=== PATIENT | female | born 1990 | race Caucasian/White ===

== ENCOUNTER 2019-07-24 18:53 | Observation (INO) | payer MEDICAID ==
[2019-07-24] MEDS ORDERED: Ondansetron 4 MG/2 ML SDV IVPUSH PRN (19:19)
[2019-07-24] MEDS ORDERED: Tranexamic Acid 1,000 MG in Sodium Chloride 0.9% 100 ML IV PRN (19:19)
[2019-07-24] MEDS ORDERED: Water For Irrigation,Sterile 1,000 ML Container IRR PRN (19:19)
[2019-07-24] MEDS ORDERED: Carboprost Tromethamine 250 MCG/1 ML Amp IM PRN (19:19)
[2019-07-24] MEDS ORDERED: Sodium Chloride 0.9% 10 ML SDV IV PRN (19:19)
[2019-07-24] MEDS ORDERED: Lidocaine 1% 50 ML MDV INJECT PRN (19:19)
[2019-07-24] MEDS ORDERED: Misoprostol 200 MCG Tab PO PRN (19:19)
[2019-07-24] MEDS ORDERED: Sodium Chloride 0.9% 10 ML Syringe FLUSH PRN (19:19)
[2019-07-24] MEDS ORDERED: Butorphanol 1 MG/ML SDV IVPUSH PRN (19:19)
[2019-07-24] MEDS ORDERED: Sodium Chloride 0.9% 2.5 ML Syringe FLUSH PRN (19:19)
[2019-07-24] MEDS ORDERED: Methylergonovine 0.2 MG/1 ML Amp IM PRN (19:19)
[2019-07-24] MEDS ORDERED: Terbutaline 1 MG/ML SDV SUBCUT PRN (19:23)
[2019-07-24] MEDS ORDERED: Oxytocin/0.9 % Sodium Chloride 30 UNIT/500 ML BAG IV SCH ×2 (19:30)
[2019-07-24] MEDS: Lactated Ringers 1,000 ML IV SCH (19:41)
[2019-07-24] MEDS ORDERED: Ampicillin 2 GM in Sodium Chloride 0.9% 100 ML IV ONE (20:00)
[2019-07-24] MEDS: Misoprostol 25 MCG (1/4 of 100 MCG) Tab VAG PRN (20:37)
[2019-07-25] MEDS ORDERED: Citric Acid/Sodium Citrate Solution 30 ML Cup PO ONE (00:44)
[2019-07-25] MEDS: Misoprostol 25 MCG (1/4 of 100 MCG) Tab VAG PRN (00:59)
[2019-07-25] MEDS: Ampicillin 1 GM in Sodium Chloride 0.9% 50 ML IV SCH ×4 (03:58→07:52)
[2019-07-25] MEDS: Lactated Ringers 1,000 ML IV SCH ×2 (04:34→09:10)
[2019-07-25] MEDS ORDERED: Docusate Sodium 100 MG Cap PO ONE (05:25)
--- NOTE | 2019-07-25 09:29 | PCM.PREANE ---
Preanesthetic Assessment - Anesthesia/Transfusion/Family Hx Anesthesia History: No Prior Anesthesia Family History of Anesthesia Reaction: No Transfusion History: No Prior Transfusion(s) - Review of Systems General: No Symptoms Pulmonary: No Symptoms Cardiovascular: No Symptoms Gastrointestinal: No Symptoms Neurological: No Symptoms Other: Reports: None - Physical Assessment NPO Status Date: 07/25/19 NPO Status Time: 09:00 Height: 5 ft 2.5 in Weight: 87.543 kg ASA Class: 2 Mental Status: Alert & Oriented x3 Airway Class: Mallampati = 3 Dentition: Reports: Normal Dentition Thyro-Mental Finger Breadths: 2 ROM/Head Extension: Full Lungs: Clear to Auscultation, Normal Respiratory Effort Cardiovascular: Regular Rate, Regular Rhythm - Lab Values: Laboratory Last Values WBC 12.84 K/uL (4.0-11.0) H 07/24/19 19:39 RBC 4.27 M/uL (4.30-5.90) L 07/24/19 19:39 Hgb 13.5 g/dL (12.0-16.0) 07/24/19 19:39 Hct 40.3 % (36.0-46.0) 07/24/19 19:39 MCV 94.4 fL (80.0-98.0) 07/24/19 19:39 MCH 31.6 pg (27.0-32.0) 07/24/19 19:39 MCHC 33.5 g/dL (31.0-37.0) 07/24/19 19:39 RDW Std Deviation 46.6 fl (28.0-62.0) 07/24/19 19:39 RDW Coeff of Kateryna 14 % (11.0-15.0) 07/24/19 19:39 Plt Count 273 K/uL (150-400) 07/24/19 19:39 MPV 10.60 fL (7.40-12.00) 07/24/19 19:39 Nucleated RBC % 0.0 /100WBC 07/24/19 19:39 Nucleated RBCs # 0 K/uL 07/24/19 19:39 Blood Type O POSITIVE 07/24/19 19:39 Antibody Screen NEGATIVE 07/24/19 19:39 - Allergies Allergies/Adverse Reactions: Allergies Allergy/AdvReac Type Severity Reaction Status Date / Time No Known Allergies Allergy Verified 07/24/19 19:08 - Acknowledgements Anesthesia Type Planned: Epidural Pt an Appropriate Candidate for the Planned Anesthesia: Yes Alternatives and Risks of Anesthesia Discussed w Pt/Guardian: Yes Pt/Guardian Understands and Agrees with Anesthesia Plan: Yes PreAnesthesia Questionnaire Respiratory History: Reports: Asthma 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: - Infectious Disease History Infectious Disease History: Reports: Chicken Pox - Past Surgical History Respiratory Surgical History: Reports: None Dermatological Surgical History: Reports: None - SUBSTANCE USE Smoking Status *Q: Never Smoker Recreational Drug Use History: No - HOME MEDS Home Medications: Home Meds Albuterol [Ventolin HFA] 1 puff MISC PRN 07/13/19 [History] Fluticasone/Salmeterol [Advair 250-50 Diskus] 1 puff MISC PRN 07/13/19 [History] Magnesium Hydroxide [Milk of Magnesia] 30 ml PO PRN 07/13/19 [History] PNV95/Ferrous Fumarate/FA [ Vitamins Tablet] 1 tab PO DAILY 07/13/19 [ History] - CURRENT (IN HOUSE) MEDS Current Meds: Current Medications Butorphanol Tartrate (Stadol) 1 mg IVPUSH Q1H PRN PRN Reason: Pain Last Admin: 07/25/19 08:20 Dose: 1 mg Carboprost Tromethamine (Hemabate Ds) 250 mcg IM ASDIRECTED PRN PRN Reason: Post Hemorrhage Ampicillin Sodium 1 gm/ Sodium (Chloride) 50 mls @ 100 mls/hr IV Q4H PRAVIN Last Admin: 07/25/19 07:52 Dose: 100 mls/hr Lactated Ringer's (Ringers, Lactated) 1,000 mls @ 150 mls/hr IV ASDIRECTED PRAVIN Last Admin: 07/25/19 09:10 Dose: 999 mls/hr Oxytocin/Sodium Chloride (Oxytocin 30 Unit/500 Ml-Ns) 30 unit in 500 mls @ 999 mls/hr IV TITRATE PRAVIN Tranexamic Acid 1,000 mg/ (Sodium Chloride) 110 mls @ 660 mls/hr IV ONETIME PRN PRN Reason: Bleeding Oxytocin/Sodium Chloride (Oxytocin 30 Unit/500 Ml-Ns) 30 unit in 500 mls @ 2 mls/hr IV TITRATE PRAVIN; Protocol Last Titration: 07/25/19 09:02 Dose: 6 munits/min, 6 mls/hr Lidocaine HCl (Xylocaine 1%) 50 ml INJECT ONETIME PRN PRN Reason: Laceration repair Methylergonovine Maleate (Methergine) 0.2 mg IM ASDIRECTED PRN PRN Reason: Post Hemorrhage Misoprostol (Cytotec) 200 mcg PO ONETIME PRN PRN Reason: Post Hemorrhage Misoprostol (Cytotec) 25 mcg VAG Q4H PRN PRN Reason: Cervical Ripening Last Admin: 07/25/19 00:59 Dose: 25 mcg Ondansetron HCl (Zofran) 4 mg IVPUSH Q6H PRN PRN Reason: Nausea/Vomiting Sodium Chloride (Saline Flush) 10 ml FLUSH ASDIRECTED PRN PRN Reason: Keep Vein Open Sodium Chloride (Saline Flush) 2.5 ml FLUSH ASDIRECTED PRN PRN Reason: Keep Vein Open Sodium Chloride (Normal Saline) 10 ml IV ASDIRECTED PRN PRN Reason: IV Use Sterile Water (Sterile Water For Irrigation) 1,000 ml IRR ASDIRECTED PRN PRN Reason: delivery Terbutaline Sulfate (Brethine) 0.25 mg SUBCUT ASDIRECTED PRN PRN Reason: Tacysystole Discontinued Medications Citric Acid/Sodium Citrate (Bicitra Solution) 30 ml PO ONETIME ONE Stop: 07/25/19 00:45 Last Admin: 07/25/19 01:01 Dose: 30 ml Docusate Sodium (Colace) 100 mg PO ONETIME ONE Stop: 07/25/19 05:26 Last Admin: 07/25/19 05:32 Dose: 100 mg Ampicillin Sodium 2 gm/ Sodium (Chloride) 100 mls @ 200 mls/hr IV ONETIME ONE Stop: 07/24/19 20:29 Last Admin: 07/24/19 19:49 Dose: 200 mls/hr Fentanyl/Bupivacaine HCl ([id number]-Avrvw-Ex 2 Mcg/Ml-0.125%) Confirm Administered Dose 100 mls @ as directed .ROUTE .STK-MED ONE Stop: 07/25/19 09:06
[2019-07-25] MEDS ORDERED: Lanolin 100% Cream 7 GM Tube TOP PRN (10:23)
[2019-07-25] MEDS ORDERED: Benzocaine/Menthol 20%-0.5% Spray 78 GM Cannister TOP PRN (10:23)
[2019-07-25] MEDS ORDERED: Witch Hazel Medicated Pads 40/Jar TOP PRN (10:23)
[2019-07-25] MEDS ORDERED: oxyCODONE 5 MG Tab PO PRN (10:23)
[2019-07-25] MEDS ORDERED: Ibuprofen 400 MG Tab PO PRN (10:23)
[2019-07-25] MEDS ORDERED: Docusate Sodium 100 MG Cap PO PRN (10:23)
[2019-07-25] MEDS ORDERED: Acetaminophen 500 MG Tab PO PRN (10:23)
[2019-07-25] MEDS ORDERED: Bisacodyl 10 MG Supp RECTAL PRN (10:23)
[2019-07-25] MEDS: Ibuprofen 800 MG Tab PO PRN ×2 (13:16→20:15)
--- NOTE | 2019-07-25 16:04 | OR ---
SURGEON: Aliza Henriquez M.D. DATE OF PROCEDURE: 07/25/2019 PREOPERATIVE DIAGNOSES: 1. 39/1 week intrauterine . 2. Elective induction of labor. 3. Group B beta strep positive. POSTOPERATIVE DIAGNOSES: 1. 39/1 week intrauterine . 2. Elective induction of labor. 3. Group B beta strep positive. PROCEDURE: Spontaneous vaginal delivery, intact perineum. CONSULTING DATABASE ADMINISTRATOR: LINDA Shepherd. ANESTHESIA: Epidural. ESTIMATED BLOOD LOSS: 300 mL. COMPLICATIONS: None known. FINDINGS: Viable female. scores of 9 at one minute and 9 at five minutes. Weight is pending. Spontaneous delivery, intact placenta, 3-vessel cord. DISPOSITION: to nursery and mom in LDRP. PROCEDURE DETAILS: Issac is a 28-year-old, G5, P4 39/1 week gestational age, who was admitted on the evening of 07/24/2019, for Cytotec ripening due to elective induction of labor request and unfavorable cervix. The patient responded nicely to the Cytotec ripening. The following morning was found to be 4 cm, 80% effaced, -2 station. She is group B beta strep positive, has received 4 doses of ampicillin prophylaxis. Therefore, underwent amniotomy shortly before 09:00 a.m., clear fluid was returned. The patient became increasingly uncomfortable, underwent regional anesthesia in the form of epidural and began to progress much more rapidly thereafter. With the next hour, she was found to be complete, 100% effaced, at a +2 station. I was called for delivery. Upon my arrival, the patient was placed in modified dorsal lithotomy position, was prepped and draped in the usual aseptic manner. Pitocin was at 6 milliunits per minute. heart tones 140s with variability. With the next 2 contractions, was able to push and deliver the infant's head atraumatically spontaneously, followed by anterior shoulder, posterior shoulder and main body without difficulty. Nuchal cord x1 reduced manually. The 's oropharynx and nares were bulb suctioned. was handed off to her mother with attending nurse staff at the side. After delay, cord was clamped x2 and cut. Cord arterial, cord venous, cord blood sampling were obtained. Light pressure was applied. The placenta was delivered spontaneously intact. Vigorous fundal uterine massage was then applied while 30 units of Pitocin was delivered in 500 mL IV fluid. On inspection of cervix, vaginal sidewall, and the perineum, these were found to be intact. Uterus remained firm. Hemostasis evident. Sponge and instrument counts were correct. The patient remained in LDRP and infant in nursery. ADILIA WILHELM /[id number] MTDD
[2019-07-25] MEDS: Acetaminophen 500 MG Tab PO PRN (17:43)
[2019-07-26] MEDS: Ibuprofen 800 MG Tab PO PRN ×2 (03:54→11:30)
--- NOTE | 2019-07-26 05:07 | PCM.PNPP ---
- General Info Date of Service: 07/26/19 Functional Status: Reports: Pain Controlled, Tolerating Diet, Ambulating, Urinating - Review of Systems General: Reports: No Symptoms HEENT: Reports: No Symptoms Pulmonary: Reports: No Symptoms Cardiovascular: Reports: No Symptoms Gastrointestinal: Reports: No Symptoms Genitourinary: Reports: No Symptoms Musculoskeletal: Reports: No Symptoms Skin: Reports: No Symptoms Neurological: Reports: No Symptoms Psychiatric: Reports: No Symptoms - Patient Data Vital Signs - Most Recent: Last Vital Signs Temp 36.5 C 07/26/19 04:18 Pulse 76 07/26/19 04:18 Resp 15 07/26/19 04:18 BP 125/78 07/26/19 04:18 Pulse Ox 94 L 07/26/19 04:18 Weight - Most Recent: 87.543 kg Med Orders - Current: Current Medications Acetaminophen (Tylenol Extra Strength) 500 mg PO Q4H PRN PRN Reason: Pain Acetaminophen (Tylenol Extra Strength) 1,000 mg PO Q4H PRN PRN Reason: Pain Last Admin: 07/25/19 17:43 Dose: 1,000 mg Benzocaine/Menthol (Dermoplast Pain Relief 20%-0.5% [place]) 78 gm TOP ASDIRECTED PRN PRN Reason: Perineal Comfort Measure Bisacodyl (Dulcolax) 10 mg RECTAL ONETIME PRN PRN Reason: Constipation Carboprost Tromethamine (Hemabate Ds) 250 mcg IM ASDIRECTED PRN PRN Reason: Post Hemorrhage Docusate Sodium (Colace) 100 mg PO BID PRN PRN Reason: Constipation Emollient Ointment (Lansinoh Hpa) 0 gm TOP ASDIRECTED PRN PRN Reason: Sore Nipples Lactated Ringer's (Ringers, Lactated) 1,000 mls @ 150 mls/hr IV ASDIRECTED PRAVIN Last Infusion: 07/25/19 09:30 Dose: 150 mls/hr Oxytocin/Sodium Chloride (Oxytocin 30 Unit/500 Ml-Ns) 30 unit in 500 mls @ 999 mls/hr IV TITRATE PRAVIN Tranexamic Acid 1,000 mg/ (Sodium Chloride) 110 mls @ 660 mls/hr IV ONETIME PRN PRN Reason: Bleeding Oxytocin/Sodium Chloride (Oxytocin 30 Unit/500 Ml-Ns) 30 unit in 500 mls @ 2 mls/hr IV TITRATE PRAVIN; Protocol Last Titration: 07/25/19 10:10 Dose: 500 munits/min, 500 mls/hr Ibuprofen (Motrin) 400 mg PO Q4H PRN PRN Reason: Pain Ibuprofen (Motrin) 800 mg PO Q6H PRN PRN Reason: Pain Last Admin: 07/26/19 03:54 Dose: 800 mg Lidocaine HCl (Xylocaine 1%) 50 ml INJECT ONETIME PRN PRN Reason: Laceration repair Methylergonovine Maleate (Methergine) 0.2 mg IM ASDIRECTED PRN PRN Reason: Post Hemorrhage Ondansetron HCl (Zofran) 4 mg IVPUSH Q6H PRN PRN Reason: Nausea/Vomiting Oxycodone HCl (Oxycodone) 5 mg PO Q2H PRN PRN Reason: Pain Last Admin: 07/25/19 17:43 Dose: 5 mg Sodium Chloride (Saline Flush) 10 ml FLUSH ASDIRECTED PRN PRN Reason: Keep Vein Open Sodium Chloride (Saline Flush) 2.5 ml FLUSH ASDIRECTED PRN PRN Reason: Keep Vein Open Sodium Chloride (Normal Saline) 10 ml IV ASDIRECTED PRN PRN Reason: IV Use Sterile Water (Sterile Water For Irrigation) 1,000 ml IRR ASDIRECTED PRN PRN Reason: delivery Last Admin: 07/25/19 10:29 Dose: 1,000 ml Witch Perri (Tucks) 1 pad TOP ASDIRECTED PRN PRN Reason: comfort care Discontinued Medications Butorphanol Tartrate (Stadol) 1 mg IVPUSH Q1H PRN PRN Reason: Pain Last Admin: 07/25/19 08:20 Dose: 1 mg Citric Acid/Sodium Citrate (Bicitra Solution) 30 ml PO ONETIME ONE Stop: 07/25/19 00:45 Last Admin: 07/25/19 01:01 Dose: 30 ml Docusate Sodium (Colace) 100 mg PO ONETIME ONE Stop: 07/25/19 05:26 Last Admin: 07/25/19 05:32 Dose: 100 mg Ampicillin Sodium 2 gm/ Sodium (Chloride) 100 mls @ 200 mls/hr IV ONETIME ONE Stop: 07/24/19 20:29 Last Admin: 07/24/19 19:49 Dose: 200 mls/hr Ampicillin Sodium 1 gm/ Sodium (Chloride) 50 mls @ 100 mls/hr IV Q4H PRAVIN Last Admin: 07/25/19 07:52 Dose: 100 mls/hr Fentanyl/Bupivacaine HCl (Gzadzpdc-Ajxdp-Yy 2 Mcg/Ml-0.125%) Confirm Administered Dose 100 mls @ as directed .ROUTE .STK-MED ONE Stop: 07/25/19 09:06 Last Admin: 07/25/19 18:30 Dose: Not Given Misoprostol (Cytotec) 200 mcg PO ONETIME PRN PRN Reason: Post Hemorrhage Misoprostol (Cytotec) 25 mcg VAG Q4H PRN PRN Reason: Cervical Ripening Last Admin: 07/25/19 00:59 Dose: 25 mcg Terbutaline Sulfate (Brethine) 0.25 mg SUBCUT ASDIRECTED PRN PRN Reason: Tacysystole - Interaction Disposition, : [place] at Bedside Interaction: Holding Infant Infant Feeding: Attempted ; Nursed Fair/Poor Support Person: - Recovery Exam Fundal Tone: Firm Fundal Level: At Umbilicus Fundal Placement: Midline Lochia Amount: None Lochia Color: Rubra/Red Bladder Status: Voiding Urinary Elimination: Voided - Exam General: Alert, Oriented, Cooperative, No Acute Distress Neck: Supple Lungs: Clear to Auscultation, Normal Respiratory Effort Cardiovascular: Regular Rate, Regular Rhythm GI/Abdominal Exam: Soft, Non-Tender Extremities: Non-Tender Skin: Warm, Dry, Intact Wound/Incisions: Healing Well Neurological: No New Focal Deficit Psy/Mental Status: Alert, Normal Affect, Normal Mood - Problem List & Annotations (1) Vaginal delivery SNOMED Code(s): 619320554 Code(s): O80 - ENCOUNTER FOR FULL-TERM UNCOMPLICATED DELIVERY Status: Acute Current Visit: Yes - Problem List Review Problem List Initiated/Reviewed/Updated: Yes - My Orders Last 24 Hours: My Active Orders 07/26/19 05:05 Ready for Discharge [RC] PER UNIT ROUTINE - Assessment Assessment:: 28yo s/p spontaneous vaginal delivery - Plan Plan:: 1. care -Encourage ambulation 2. Dispo -Discharge home today
--- NOTE | 2019-07-26 07:00 | PCM48HPAN ---
Post Anesthesia Note - EVALUATION WITHIN 48HRS OF ANESTHETIC Vital Signs in Normal Range: Yes Patient Participated in Evaluation: Yes Respiratory Function Stable: Yes Airway Patent: Yes Cardiovascular Function Stable: Yes Hydration Status Stable: Yes Pain Control Satisfactory: Yes Nausea and Vomiting Control Satisfactory: Yes Mental Status Recovered: Yes Vital Signs: Last Vital Signs Temp 97.7 F 07/26/19 04:18 Pulse 76 07/26/19 04:18 Resp 15 07/26/19 04:18 BP 125/78 07/26/19 04:18 Pulse Ox 94 L 07/26/19 04:18
[2019-07-26] MEDS: Acetaminophen 500 MG Tab PO PRN (09:26)
== END 2019-07-26 13:55 | disposition home or self-care (01) ==
LOC: MW.OBCHECK 18:53 → MW.OB 18:55 → MW.OBCHECK 19:19 → MW.OB 07-25 12:20
PROVIDERS: ADMIT Obstetrics & Gynecology; ATTEND Obstetrics & Gynecology
DX: O80 Encounter for full-term uncomplicated delivery (principal); O99.89 Other specified diseases and conditions complicating pregnancy, childbirth and the puerperium; J45.909 Unspecified asthma, uncomplicated; Z3A.39 39 weeks gestation of pregnancy
CPT/HCPCS: 36415; 51701; 59025; 59409; 85014; 85018; 85027; 86850; 86900; 86901; A9270; J0290; J0595; J2590; J7030; J7050; J7120

== ENCOUNTER 2020-09-02 13:37 | Inpatient (IN) | payer MEDICAID ==
[2020-09-02] MEDS ORDERED: Sodium Chloride 0.9% 2.5 ML Syringe FLUSH PRN (14:05)
[2020-09-02] MEDS ORDERED: Carboprost Tromethamine 250 MCG/1 ML Amp IM PRN (14:05)
[2020-09-02] MEDS ORDERED: Sodium Chloride 0.9% 10 ML Syringe FLUSH PRN (14:05)
[2020-09-02] MEDS ORDERED: Misoprostol 200 MCG Tab PO PRN (14:05)
[2020-09-02] MEDS ORDERED: Sodium Chloride 0.9% 10 ML SDV IV PRN (14:05)
[2020-09-02] MEDS ORDERED: Tranexamic Acid 1,000 MG in Sodium Chloride 0.9% 100 ML IV PRN ×2 (14:05→22:45)
[2020-09-02] MEDS ORDERED: Water For Irrigation,Sterile 1,000 ML Container IRR PRN (14:05)
[2020-09-02] MEDS ORDERED: Methylergonovine 0.2 MG/1 ML Amp IM PRN (14:05)
[2020-09-02] MEDS ORDERED: Lidocaine 1% 50 ML MDV INJECT PRN (14:05)
[2020-09-02] MEDS ORDERED: Nalbuphine 10 MG/1 ML Vial IVPUSH PRN (14:05)
[2020-09-02] MEDS ORDERED: Terbutaline 1 MG/ML SDV SUBCUT PRN (14:10)
[2020-09-02] MEDS ORDERED: Oxytocin/0.9 % Sodium Chloride 30 UNIT/500 ML BAG IV SCH ×2 (14:15)
[2020-09-02] MEDS: Lactated Ringers 1,000 ML IV SCH ×4 (14:40→20:24)
--- NOTE | 2020-09-02 18:07 | PCM.PREANE ---
Preanesthetic Assessment - Anesthesia/Transfusion/Family Hx Anesthesia History: Prior Anesthesia Without Reaction (only for epidurals) Transfusion History: No Prior Transfusion(s) - Review of Systems General: No Symptoms Pulmonary: No Symptoms Cardiovascular: No Symptoms Gastrointestinal: No Symptoms Neurological: No Symptoms Other: Reports: None - Physical Assessment NPO Status Date: 09/02/20 NPO Status Time: 17:40 Height: 1.61 m Weight: 94.347 kg ASA Class: 2 Mental Status: Alert & Oriented x3 Airway Class: Mallampati = 2 Dentition: Reports: Normal Dentition Thyro-Mental Finger Breadths: 3 Mouth Opening Finger Breadths: 3 ROM/Head Extension: Full Lungs: Clear to Auscultation, Normal Respiratory Effort Cardiovascular: Regular Rate, Regular Rhythm - Lab Values: Laboratory Last Values WBC 10.50 K/uL (4.0-11.0) 09/02/20 13:30 RBC 3.95 M/uL (4.30-5.90) L 09/02/20 13:30 Hgb 12.3 g/dL (12.0-16.0) 09/02/20 13:30 Hct 37.4 % (36.0-46.0) 09/02/20 13:30 MCV 94.7 fL (80.0-98.0) 09/02/20 13:30 MCH 31.1 pg (27.0-32.0) 09/02/20 13:30 MCHC 32.9 g/dL (31.0-37.0) 09/02/20 13:30 RDW Std Deviation 46.5 fl (28.0-62.0) 09/02/20 13:30 RDW Coeff of Kateryna 13 % (11.0-15.0) 09/02/20 13:30 Plt Count 298 K/uL (150-400) 09/02/20 13:30 MPV 10.00 fL (7.40-12.00) 09/02/20 13:30 Nucleated RBC % 0.0 /100WBC 09/02/20 13:30 Nucleated RBCs # 0 K/uL 09/02/20 13:30 Blood Type O POSITIVE 09/02/20 13:30 Antibody Screen NEGATIVE 09/02/20 13:30 - Allergies Allergies/Adverse Reactions: Allergies Allergy/AdvReac Type Severity Reaction Status Date / Time No Known Allergies Allergy Verified 07/24/19 19:08 - Acknowledgements Anesthesia Type Planned: Epidural (patient understands risks and benefits, and agrees to proceed. Consent signed. ) Pt an Appropriate Candidate for the Planned Anesthesia: Yes Alternatives and Risks of Anesthesia Discussed w Pt/Guardian: Yes Pt/Guardian Understands and Agrees with Anesthesia Plan: Yes PreAnesthesia Questionnaire HEENT History: Reports: None Cardiovascular History: Reports: None Respiratory History: Reports: Asthma (last used inhaler six months ago) Gastrointestinal History: Reports: GERD Genitourinary History: Reports: None [employer] History: Reports: Musculoskeletal History: Reports: None Neurological History: Reports: None Psychiatric History: Reports: None Endocrine/Metabolic History: Reports: Obesity/BMI 30+ Hematologic History: Reports: None Immunologic History: Reports: None Oncologic (Cancer) History: Reports: None Dermatologic History: Reports: None - Infectious Disease History Infectious Disease History: Reports: Chicken Pox - Past Surgical History HEENT Surgical History: Reports: None Cardiovascular Surgical History: Reports: None Respiratory Surgical History: Reports: None GI Surgical History: Reports: None Female Surgical History: Reports: None Musculoskeletal Surgical History: Reports: None Dermatological Surgical History: Reports: None - History Comment History Comment: denies etoh - SUBSTANCE USE Tobacco Use Status *Q: Never Tobacco User Second Hand Smoke Exposure: No Recreational Drug Use History: No - HOME MEDS Home Medications: Home Meds Albuterol [Ventolin HFA] 1 puff MISC PRN 07/13/19 [History] Fluticasone Propion/Salmeterol [Advair 250-50 Diskus] 1 puff MISC PRN 07/13/19 [History] Magnesium Hydroxide [Milk of Magnesia] 30 ml PO PRN 07/13/19 [History] Pnv No.95/Ferrous Fum/Folic AC [ Vitamins Tablet] 1 tab PO DAILY 07/13/19 [History] - CURRENT (IN HOUSE) MEDS Current Meds: Current Medications Butorphanol Tartrate (Stadol) 1 mg IVPUSH Q1H PRN PRN Reason: Pain Carboprost Tromethamine (Hemabate Ds) 250 mcg IM ASDIRECTED PRN PRN Reason: Post Hemorrhage Oxytocin/Sodium Chloride (Oxytocin 30 Unit/500 Ml-Ns) 30 unit in 500 mls @ 500 mls/hr IV TITRATE PRAVIN Tranexamic Acid 1,000 mg/ (Sodium Chloride) 110 mls @ 660 mls/hr IV ONETIME PRN PRN Reason: Bleeding Lactated Ringer's (Ringers, Lactated) 1,000 mls @ 150 mls/hr IV ASDIRECTED PRAVIN Last Admin: 09/02/20 14:40 Dose: 150 mls/hr Documented by: Oxytocin/Sodium Chloride (Oxytocin 30 Unit/500 Ml-Ns) 30 unit in 500 mls @ 2 mls/hr IV TITRATE PRAVIN; Protocol Last Titration: 09/02/20 17:21 Dose: 10 munits/min, 10 mls/hr Documented by: Lidocaine HCl (Xylocaine 1%) 50 ml INJECT ONETIME PRN PRN Reason: Laceration repair Methylergonovine Maleate (Methergine) 0.2 mg IM ASDIRECTED PRN PRN Reason: Post Hemorrhage Misoprostol (Cytotec) 200 mcg PO ONETIME PRN PRN Reason: Post Hemorrhage Nalbuphine HCl (Nubain) 10 mg IVPUSH Q1H PRN PRN Reason: Pain (severe 7-10) Sodium Chloride (Saline Flush) 10 ml FLUSH ASDIRECTED PRN PRN Reason: Keep Vein Open Sodium Chloride (Saline Flush) 2.5 ml FLUSH ASDIRECTED PRN PRN Reason: Keep Vein Open Sodium Chloride (Normal Saline) 10 ml IV ASDIRECTED PRN PRN Reason: IV Use Sterile Water (Sterile Water For Irrigation) 1,000 ml IRR ASDIRECTED PRN PRN Reason: delivery Terbutaline Sulfate (Brethine) 0.25 mg SUBCUT ASDIRECTED PRN PRN Reason: Tacysystole
[2020-09-02] MEDS ORDERED: Ropivacaine HCl/PF 100 ML ONE (18:09)
[2020-09-02] MEDS: Butorphanol 1 MG/ML SDV IVPUSH PRN (18:59)
[2020-09-02] MEDS ORDERED: Bupivacaine 0.25% 10 ML SDV ONE (19:08)
[2020-09-02] MEDS ORDERED: fentaNYL 100 MCG/2 ML SDV ONE (19:08)
--- NOTE | 2020-09-02 19:34 | PCM.SN.2 ---
- Free Text/Narrative Note: Consent for epidural signed. patient in sitting position. procedure done with a sterile technique. the patient's back was prepped with chlohexidine and draped. 1% lidocaine 3 ml for skin infiltration. 17 gauge touhy blanco at 6.5 cm +csf. patient informed. Jair modi. 183 Dr[address] Hsu called for assistance. One attempt by me.
--- NOTE | 2020-09-02 19:35 | PCM.SN.2 ---
- Free Text/Narrative Note: Called to assist with epidural placement. Prior attempt(s) resulted in wet tap. Pt interviewed. Back prepped with chloroprep. midline entered at l4-5, bony resistance x 2 with redirect. local injected 1 cm to the R of midline. epidural space entered on first pass by the paramedian approach. MANUEL at 8 cm. catheter feeds easily, no blood, csf or paresthesias. Catheter secured at 15 cm. neg test dose. loading dose with 100 mcg of fentanyl and 9 ml of 0.5% bupivicaine. loading dose given in two 5 ml increments. Pt anxious but tolerated the procedure well.
[2020-09-02] MEDS ORDERED: Famotidine 20 MG/2 ML SDV IVPUSH ONE (19:45)
--- NOTE | 2020-09-02 22:43 | PCM.DEL ---
L & D Note - General Info Date of Service: 09/02/20 - Delivery Note Labor: Induced by ARM, Induced by Oxytocin Delivery Outcome: Livebirth Infant Delivery Method: Spontaneous Vaginal Delivery-Single Presentation: Right Occiput Anterior (RAYMOND) Nuchal Cord: Present, Reduced Prep: Other Anesthesia Type: Epidural Amniotic Fluid Description: Clear Episiotomy Type: None Laceration: None Placenta: Intact, Spontaneous Cord: 3 Vessels Estimated Blood Loss: 200 Resuscitation Needed: No [place]: Suctioned Score 1 min: 8 Score 5 min: 9 Delivery Comments (Free Text/Narrative):: Liveborn male 8/9 weight 4010 grams. - General Info Date of Service: 09/02/20 - Patient Data Weight - Most Recent: 94.347 kg Lab Results Last 24 Hours: Laboratory Results - last 24 hr 09/02/20 09/02/20 Range/Units 13:30 13:30 WBC 10.50 (4.0-11.0) K/uL RBC 3.95 L (4.30-5.90) M/uL Hgb 12.3 (12.0-16.0) g/dL Hct 37.4 (36.0-46.0) % MCV 94.7 (80.0-98.0) fL MCH 31.1 (27.0-32.0) pg MCHC 32.9 (31.0-37.0) g/dL RDW Std Deviation 46.5 (28.0-62.0) fl RDW Coeff of Kateryna 13 (11.0-15.0) % Plt Count 298 (150-400) K/uL MPV 10.00 (7.40-12.00) fL Nucleated RBC % 0.0 /100WBC Nucleated RBCs # 0 K/uL Blood Type O POSITIVE Antibody Screen NEGATIVE Med Orders - Current: Current Medications Butorphanol Tartrate (Stadol) 1 mg IVPUSH Q1H PRN PRN Reason: Pain Last Admin: 09/02/20 18:59 Dose: 1 mg Documented by: Carboprost Tromethamine (Hemabate Ds) 250 mcg IM ASDIRECTED PRN PRN Reason: Post Hemorrhage Oxytocin/Sodium Chloride (Oxytocin 30 Unit/500 Ml-Ns) 30 unit in 500 mls @ 500 mls/hr IV TITRATE PRAVIN Tranexamic Acid 1,000 mg/ (Sodium Chloride) 110 mls @ 660 mls/hr IV ONETIME PRN PRN Reason: Bleeding Lactated Ringer's (Ringers, Lactated) 1,000 mls @ 150 mls/hr IV ASDIRECTED PRAVIN Last Admin: 09/02/20 20:24 Dose: 999 mls/hr Documented by: Oxytocin/Sodium Chloride (Oxytocin 30 Unit/500 Ml-Ns) 30 unit in 500 mls @ 2 mls/hr IV TITRATE PRAVIN; Protocol Last Titration: 09/02/20 21:30 Dose: 8 munits/min, 8 mls/hr Documented by: Lidocaine HCl (Xylocaine 1%) 50 ml INJECT ONETIME PRN PRN Reason: Laceration repair Methylergonovine Maleate (Methergine) 0.2 mg IM ASDIRECTED PRN PRN Reason: Post Hemorrhage Misoprostol (Cytotec) 200 mcg PO ONETIME PRN PRN Reason: Post Hemorrhage Nalbuphine HCl (Nubain) 10 mg IVPUSH Q1H PRN PRN Reason: Pain (severe 7-10) Sodium Chloride (Saline Flush) 10 ml FLUSH ASDIRECTED PRN PRN Reason: Keep Vein Open Sodium Chloride (Saline Flush) 2.5 ml FLUSH ASDIRECTED PRN PRN Reason: Keep Vein Open Sodium Chloride (Normal Saline) 10 ml IV ASDIRECTED PRN PRN Reason: IV Use Sterile Water (Sterile Water For Irrigation) 1,000 ml IRR ASDIRECTED PRN PRN Reason: delivery Terbutaline Sulfate (Brethine) 0.25 mg SUBCUT ASDIRECTED PRN PRN Reason: Tacysystole Discontinued Medications Bupivacaine HCl (Sensorcaine-Mpf 0.25%) Confirm Administered Dose 10 ml .ROUTE .STK-MED ONE Stop: 09/02/20 19:09 Famotidine (Pepcid) 20 mg IVPUSH ONETIME ONE Stop: 09/02/20 19:46 Last Admin: 09/02/20 20:27 Dose: 20 mg Documented by: Fentanyl (Sublimaze) Confirm Administered Dose 100 mcg .ROUTE .STK-MED ONE Stop: 09/02/20 19:09 Ropivacaine (Naropin 0.2%) Confirm Administered Dose 100 mls @ as directed .ROUTE .STK-MED ONE Stop: 09/02/20 18:10 - Problem List & Annotations (1) Vaginal delivery SNOMED Code(s): 516297648 Code(s): O80 - ENCOUNTER FOR FULL-TERM UNCOMPLICATED DELIVERY Status: Acute Current Visit: No - Problem List Review Problem List Initiated/Reviewed/Updated: Yes
[2020-09-02] MEDS ORDERED: Fluticasone/Salmeterol 250-50 MCG Inhalation Powder 14/Diskus INH PRN (22:44)
[2020-09-02] MEDS ORDERED: Acetaminophen 500 MG Tab PO PRN (22:45)
[2020-09-02] MEDS ORDERED: Witch Hazel Medicated Pads 40/Jar TOP PRN (22:45)
[2020-09-02] MEDS ORDERED: Ibuprofen 400 MG Tab PO PRN (22:45)
[2020-09-02] MEDS ORDERED: oxyCODONE 5 MG Tab PO PRN (22:45)
[2020-09-02] MEDS ORDERED: Lanolin 100% Cream 7 GM Tube TOP PRN (22:45)
[2020-09-02] MEDS ORDERED: Bisacodyl 10 MG Supp RECTAL PRN (22:45)
[2020-09-02] MEDS ORDERED: Benzocaine/Menthol 20%-0.5% Spray 78 GM Cannister TOP PRN (22:45)
[2020-09-02] MEDS ORDERED: Ondansetron 4 MG/2 ML SDV IVPUSH PRN (23:22)
[2020-09-03] MEDS ORDERED: Ketorolac 30 MG/ML SDV IVPUSH ONE (01:06)
[2020-09-03] MEDS ORDERED: Butorphanol 2 MG/ML SDV IVPUSH PRN (01:07)
--- NOTE | 2020-09-03 01:29 | OR ---
SURGEON: Belle Wynne M.D. DATE OF PROCEDURE: 09/02/2020 PREOPERATIVE DIAGNOSES: 1. A 40-2/7 weeks' intrauterine . 2. Grand multiparity. POSTOPERATIVE DIAGNOSES: 1. A 40-2/7 weeks' intrauterine . 2. Grand multiparity. PROCEDURE: Pitocin induction of labor, term spontaneous vaginal delivery. PRIMARY SURGEON: Belle Wynne M.D. ANESTHESIA: Epidural. ESTIMATED BLOOD LOSS: Less than 200 mL. FINDINGS: A live-born male, scores 8 and 9, weight is pending at the time of dictation. Placenta delivered spontaneously, Schultze intact, with 3 vessels. Perineum was intact. COMPLICATIONS: None known. DISPOSITION: Mother and baby are in LDR in good condition. BRIEF HISTORY: This is a 29-year-old female, G6, P5, presents at 40-2/7 weeks' gestation for induction of labor. She was initially 2 to 3 cm dilated. She had artificial rupture of membranes. She was group B strep negative. She received Pitocin for induction of labor. She did receive an epidural for pain management. Initial tap was wet. She had the epidural replaced. She did develop a spinal headache and delivered in the supine position due to the headache. DESCRIPTION OF PROCEDURE: With the patient in dorsal lithotomy position, the patient was feeling pressure. Examination showed the fetus to be in the right occiput posterior position. The head was gently rotated with maternal pushing to the right occiput anterior position. The patient continued to push over the next 4 contractions to a 5+ station, at which time the head was delivered spontaneously and atraumatically over the perineum with support. Nuchal cord x1 was reduced. The anterior and posterior shoulders were delivered without difficulty with subsequent delivery of the 's body. The infant was bulb suctioned by nose and mouth, and after the cord had ceased to pulsate, it was doubly clamped and cut. The was handed to the mother in the presence of the nurse in attendance at delivery. The was a liveborn male, scores 8 and 9, weight pending. Cord blood was collected for cord ABGs as well as routine cord blood sampling. Pitocin was initiated after delivery of the infant to assist with delivery of the placenta, which was delivered spontaneously, Schultze intact, with 3 vessels. Upon inspection of the pelvis and perineum, there were no periurethral, vaginal sidewall, cervical, rectal, or perineal lacerations. EBL was less than 300 mL. There were no known complications. Final sponge, needle, and instrument counts were correct. Mother and baby are in LDR in good condition. BRI WILHELM /[id number]
[2020-09-03] MEDS: Albuterol 8 GM Inhaler INH PRN ×2 (02:08→20:12)
[2020-09-03] MEDS: Docusate Sodium 100 MG Cap PO PRN ×2 (02:10→20:11)
[2020-09-03] MEDS ORDERED: Butorphanol 1 MG/ML SDV ONE ×2 (03:36→07:50)
[2020-09-03] MEDS: Butorphanol 1 MG/ML SDV IVPUSH PRN (07:54)
[2020-09-03] MEDS ORDERED: Prenatal Multivitamin and Multimineral with Iron Tab PO SCH (09:00)
[2020-09-03] MEDS: Ibuprofen 800 MG Tab PO PRN ×3 (11:07→23:08)
--- NOTE | 2020-09-03 11:57 | PCM.PNPP ---
- General Info Date of Service: 09/03/20 Subjective Update: Has a persistent headache with lifting head off pillow and ambulating. Did have a difficult epidural placement with 3 attempts. Functional Status: Reports: Tolerating Diet, Ambulating, Urinating - Review of Systems General: Reports: No Symptoms HEENT: Reports: No Symptoms Pulmonary: Reports: No Symptoms Cardiovascular: Reports: No Symptoms Gastrointestinal: Reports: No Symptoms Genitourinary: Reports: No Symptoms Musculoskeletal: Reports: No Symptoms Skin: Reports: No Symptoms Neurological: Reports: Headache. Denies: Confusion, Seizure, Difficulty Walking, Gait Disturbance Psychiatric: Reports: Anxiety, Agitation - General Info Date of Service: 09/03/20 - Patient Data Vital Signs - Most Recent: Last Vital Signs Temp 36.8 C 09/03/20 08:00 Pulse 72 09/03/20 08:00 Resp 16 09/03/20 08:00 BP 113/72 09/03/20 08:00 Pulse Ox 95 09/03/20 08:00 Weight - Most Recent: 94.347 kg Lab Results - Last 24 Hours: Laboratory Results - last 24 hr 09/02/20 09/02/20 09/02/20 Range/Units 13:30 13:30 22:22 WBC 10.50 (4.0-11.0) K/uL RBC 3.95 L (4.30-5.90) M/uL Hgb 12.3 (12.0-16.0) g/dL Hct 37.4 (36.0-46.0) % MCV 94.7 (80.0-98.0) fL MCH 31.1 (27.0-32.0) pg MCHC 32.9 (31.0-37.0) g/dL RDW Std Deviation 46.5 (28.0-62.0) fl RDW Coeff of Kateryna 13 (11.0-15.0) % Plt Count 298 (150-400) K/uL MPV 10.00 (7.40-12.00) fL Nucleated RBC % 0.0 /100WBC Nucleated RBCs # 0 K/uL Cord ABG pH 7.214 (7.18-7.38) Cord ABG Base Excess -2 (-10--2) Cord VBG pH 7.315 (7.25-7.45) Cord VBG Base Excess -3 (-10--2) Blood Type O POSITIVE Antibody Screen NEGATIVE 09/03/20 Range/Units 04:43 WBC (4.0-11.0) K/uL RBC (4.30-5.90) M/uL Hgb 11.8 L (12.0-16.0) g/dL Hct 36.9 (36.0-46.0) % MCV (80.0-98.0) fL MCH (27.0-32.0) pg MCHC (31.0-37.0) g/dL RDW Std Deviation (28.0-62.0) fl RDW Coeff of Kateryna (11.0-15.0) % Plt Count (150-400) K/uL MPV (7.40-12.00) fL Nucleated RBC % /100WBC Nucleated RBCs # K/uL Cord ABG pH (7.18-7.38) Cord ABG Base Excess (-10--2) Cord VBG pH (7.25-7.45) Cord VBG Base Excess (-10--2) Blood Type Antibody Screen Med Orders - Current: Current Medications Acetaminophen (Tylenol Extra Strength) 500 mg PO Q4H PRN PRN Reason: Pain Acetaminophen (Tylenol Extra Strength) 1,000 mg PO Q4H PRN PRN Reason: Pain Albuterol (Ventolin Hfa) 0 gm INH BID PRN PRN Reason: Dyspnea Last Admin: 09/03/20 02:08 Dose: 1 puff Documented by: Benzocaine/Menthol (Dermoplast Pain Relief 20%-0.5% [place]) 78 gm TOP ASDIRECTED PRN PRN Reason: Perineal Comfort Measure Bisacodyl (Dulcolax) 10 mg RECTAL ONETIME PRN PRN Reason: Constipation Docusate Sodium (Colace) 100 mg PO BID PRN PRN Reason: Constipation Last Admin: 09/03/20 02:10 Dose: 100 mg Documented by: Emollient Ointment (Lansinoh Hpa) 0 gm TOP ASDIRECTED PRN PRN Reason: Sore Nipples Tranexamic Acid 1,000 mg/ (Sodium Chloride) 110 mls @ 660 mls/hr IV ONETIME PRN PRN Reason: Bleeding Ibuprofen (Motrin) 400 mg PO Q4H PRN PRN Reason: Pain Ibuprofen (Motrin) 800 mg PO Q6H PRN PRN Reason: Pain Last Admin: 09/03/20 11:07 Dose: 800 mg Documented by: Ondansetron HCl (Zofran) 4 mg IVPUSH Q6H PRN PRN Reason: Nausea/Vomiting Last Admin: 09/03/20 00:14 Dose: 4 mg Documented by: Oxycodone HCl (Oxycodone) 5 mg PO Q2H PRN PRN Reason: Pain Last Admin: 09/03/20 02:10 Dose: 5 mg Documented by: Tiny Multivit/[place]/Iron/Folic Ac ( Mtr) 1 each PO DAILY PRAVIN Fluticasone/Salmeterol (Advair Diskus 250-50) 1 puff INH BID PRN PRN Reason: Dyspnea Last Admin: 09/03/20 02:09 Dose: 1 puff Documented by: Horace Rayo ([facility]) 1 pad TOP ASDIRECTED PRN PRN Reason: comfort care Discontinued Medications Bupivacaine HCl (Sensorcaine-Mpf 0.25%) Confirm Administered Dose 10 ml .ROUTE .STK-MED ONE Stop: 09/02/20 19:09 Butorphanol Tartrate (Stadol) 1 mg IVPUSH Q1H PRN PRN Reason: Pain Last Admin: 09/03/20 07:54 Dose: 1 mg Documented by: Butorphanol Tartrate (Stadol) 2 mg IVPUSH Q2H PRN PRN Reason: Headache Butorphanol Tartrate (Stadol) Confirm Administered Dose 1 mg .ROUTE .STK-MED ONE Stop: 09/03/20 03:37 Last Admin: 09/03/20 03:44 Dose: 1 mg Documented by: Butorphanol Tartrate (Stadol) Confirm Administered Dose 1 mg .ROUTE .STK-MED ONE Stop: 09/03/20 07:51 Carboprost Tromethamine (Hemabate Ds) 250 mcg IM ASDIRECTED PRN PRN Reason: Post Hemorrhage Famotidine (Pepcid) 20 mg IVPUSH ONETIME ONE Stop: 09/02/20 19:46 Last Admin: 09/02/20 20:27 Dose: 20 mg Documented by: Fentanyl (Sublimaze) Confirm Administered Dose 100 mcg .ROUTE .STK-MED ONE Stop: 09/02/20 19:09 Oxytocin/Sodium Chloride (Oxytocin 30 Unit/500 Ml-Ns) 30 unit in 500 mls @ 500 mls/hr IV TITRATE PRAVIN Tranexamic Acid 1,000 mg/ (Sodium Chloride) 110 mls @ 660 mls/hr IV ONETIME PRN PRN Reason: Bleeding Lactated Ringer's (Ringers, Lactated) 1,000 mls @ 150 mls/hr IV ASDIRECTED PRAVIN Last Admin: 09/02/20 20:24 Dose: 999 mls/hr Documented by: Oxytocin/Sodium Chloride (Oxytocin 30 Unit/500 Ml-Ns) 30 unit in 500 mls @ 2 mls/hr IV TITRATE PRAVIN; Protocol Last Titration: 09/02/20 21:30 Dose: 8 munits/min, 8 mls/hr Documented by: Ropivacaine (Naropin 0.2%) Confirm Administered Dose 100 mls @ as directed .ROUTE .STK-MED ONE Stop: 09/02/20 18:10 Ketorolac Tromethamine (Toradol) 30 mg IVPUSH ONETIME ONE Stop: 09/03/20 01:07 Last Admin: 09/03/20 01:34 Dose: 30 mg Documented by: Lidocaine HCl (Xylocaine 1%) 50 ml INJECT ONETIME PRN PRN Reason: Laceration repair Methylergonovine Maleate (Methergine) 0.2 mg IM ASDIRECTED PRN PRN Reason: Post Hemorrhage Misoprostol (Cytotec) 200 mcg PO ONETIME PRN PRN Reason: Post Hemorrhage Nalbuphine HCl (Nubain) 10 mg IVPUSH Q1H PRN PRN Reason: Pain (severe 7-10) Sodium Chloride (Saline Flush) 10 ml FLUSH ASDIRECTED PRN PRN Reason: Keep Vein Open Sodium Chloride (Saline Flush) 2.5 ml FLUSH ASDIRECTED PRN PRN Reason: Keep Vein Open Sodium Chloride (Normal Saline) 10 ml IV ASDIRECTED PRN PRN Reason: IV Use Sterile Water (Sterile Water For Irrigation) 1,000 ml IRR ASDIRECTED PRN PRN Reason: delivery Terbutaline Sulfate (Brethine) 0.25 mg SUBCUT ASDIRECTED PRN PRN Reason: Tacysystole - Interaction Support Person: - Recovery Exam Fundal Tone: Firm Fundal Level: 2 Fingerbreadths Below Umbilicus Fundal Placement: Midline Lochia Amount: Small Lochia Color: Rubra/Red Perineum Description: Intact, Minimal Bruising/Swelling Bladder Status: Voiding - Exam General: Alert, Oriented Lungs: Normal Respiratory Effort Cardiovascular: Regular Rate, Regular Rhythm GI/Abdominal Exam: Normal Bowel Sounds, Soft Extremities: Pedal Edema (trace). No: Mc's Sign Skin: Warm, Dry, Intact Neurological: No New Focal Deficit, Reflexes Equal Bilateral, Sensation Intact Psy/Mental Status: Alert, Anxious - Problem List & Annotations (1) Vaginal delivery SNOMED Code(s): 870422292 Code(s): O80 - ENCOUNTER FOR FULL-TERM UNCOMPLICATED DELIVERY Status: Acute Current Visit: No (2) Headache SNOMED Code(s): 56570477 Code(s): R51.9 - HEADACHE, UNSPECIFIED Status: Acute Current Visit: Yes - Problem List Review Problem List Initiated/Reviewed/Updated: Yes - My Orders Last 24 Hours: My Active Orders 09/02/20 13:30 RPR (SYPHILIS SERO) W/ RFLX [REF] Routine 09/02/20 14:05 Resuscitation Status Routine - Assessment Assessment:: PPD 1 status post Headache, suspicious for spinal headache - Plan Plan:: VS are stable. Continue PP cares. Anesthesia to reevaluate for consideration of blood patch, as headach is suspicious for spinal headache.
--- NOTE | 2020-09-03 13:41 | PCM48HPAN ---
Post Anesthesia Note - EVALUATION WITHIN 48HRS OF ANESTHETIC Vital Signs in Normal Range: Yes Patient Participated in Evaluation: Yes Respiratory Function Stable: Yes Airway Patent: Yes Cardiovascular Function Stable: Yes Hydration Status Stable: Yes Pain Control Satisfactory: Yes Nausea and Vomiting Control Satisfactory: Yes Mental Status Recovered: Yes Vital Signs: Last Vital Signs Temp 36.8 C 09/03/20 08:00 Pulse 72 09/03/20 08:00 Resp 16 09/03/20 08:00 BP 113/72 09/03/20 08:00 Pulse Ox 95 09/03/20 08:00 - COMMENTS/OBSERVATIONS Free Text/Narrative:: Patient still complains of headache this morning. I recommended an epidural blood patch for treatment to the patient This was reported to the merchandising execution manager team today. The plan for today per Dr. Hsu is conservative management, and we will reassess her prior to discharge.
[2020-09-03] MEDS: Acetaminophen 500 MG Tab PO PRN ×2 (13:55→20:11)
[2020-09-04] MEDS: Acetaminophen 500 MG Tab PO PRN ×2 (03:31→08:36)
[2020-09-04] MEDS: Ibuprofen 800 MG Tab PO PRN ×2 (05:07→13:12)
[2020-09-04] MEDS: Docusate Sodium 100 MG Cap PO PRN (08:37)
--- NOTE | 2020-09-04 08:41 | PCM.PNPP ---
- General Info Date of Service: 09/04/20 Subjective Update: Headache is a bit better today--but still has pounding headache frontal when gets up to ambulate. Motrin and tylenol are helping to alleviate. Functional Status: Reports: Tolerating Diet, Ambulating, Urinating - Review of Systems General: Reports: Fatigue. Denies: Fever, Weakness Pulmonary: Denies: Shortness of Breath Cardiovascular: Denies: Chest Pain, Palpitations, Lightheadedness Gastrointestinal: Denies: Abdominal Pain, Nausea, Vomiting Genitourinary: Denies: Flank Pain Musculoskeletal: Reports: No Symptoms Skin: Reports: No Symptoms Neurological: Reports: Headache. Denies: Paresthesia, Tremors, Difficulty W alking, Gait Disturbance Psychiatric: Reports: No Symptoms - General Info Date of Service: 09/04/20 - Patient Data Vital Signs - Most Recent: Last Vital Signs Temp 36.6 C 09/04/20 07:38 Pulse 69 09/04/20 07:38 Resp 14 09/04/20 07:38 BP 115/74 09/04/20 07:38 Pulse Ox 92 L 09/04/20 07:38 Weight - Most Recent: 94.347 kg Med Orders - Current: Current Medications Acetaminophen (Tylenol Extra Strength) 500 mg PO Q4H PRN PRN Reason: Pain Acetaminophen (Tylenol Extra Strength) 1,000 mg PO Q4H PRN PRN Reason: Pain Last Admin: 09/04/20 03:31 Dose: 1,000 mg Documented by: Albuterol (Ventolin Hfa) 0 gm INH BID PRN PRN Reason: Dyspnea Last Admin: 09/03/20 20:12 Dose: 1 puff Documented by: Benzocaine/Menthol (Dermoplast Pain Relief 20%-0.5% [place]) 78 gm TOP ASDIRECTED PRN PRN Reason: Perineal Comfort Measure Bisacodyl (Dulcolax) 10 mg RECTAL ONETIME PRN PRN Reason: Constipation Docusate Sodium (Colace) 100 mg PO BID PRN PRN Reason: Constipation Last Admin: 09/03/20 20:11 Dose: 100 mg Documented by: Emollient Ointment (Lansinoh Hpa) 0 gm TOP ASDIRECTED PRN PRN Reason: Sore Nipples Tranexamic Acid 1,000 mg/ (Sodium Chloride) 110 mls @ 660 mls/hr IV ONETIME PRN PRN Reason: Bleeding Ibuprofen (Motrin) 400 mg PO Q4H PRN PRN Reason: Pain Ibuprofen (Motrin) 800 mg PO Q6H PRN PRN Reason: Pain Last Admin: 09/04/20 05:07 Dose: 800 mg Documented by: Ondansetron HCl (Zofran) 4 mg IVPUSH Q6H PRN PRN Reason: Nausea/Vomiting Last Admin: 09/03/20 00:14 Dose: 4 mg Documented by: Oxycodone HCl (Oxycodone) 5 mg PO Q2H PRN PRN Reason: Pain Last Admin: 09/03/20 02:10 Dose: 5 mg Documented by: Prenat Multivit/[employer]/Iron/Folic Ac ( Mtr) 1 each PO DAILY PRAVIN Last Admin: 09/04/20 08:07 Dose: 1 each Documented by: Fluticasone/Salmeterol (Advair Diskus 250-50) 1 puff INH BID PRN PRN Reason: Dyspnea Last Admin: 09/03/20 02:09 Dose: 1 puff Documented by: Horace Rayo ([facility]) 1 pad TOP ASDIRECTED PRN PRN Reason: comfort care Discontinued Medications Bupivacaine HCl (Sensorcaine-Mpf 0.25%) Confirm Administered Dose 10 ml .ROUTE .STK-MED ONE Stop: 09/02/20 19:09 Butorphanol Tartrate (Stadol) 1 mg IVPUSH Q1H PRN PRN Reason: Pain Last Admin: 09/03/20 07:54 Dose: 1 mg Documented by: Butorphanol Tartrate (Stadol) 2 mg IVPUSH Q2H PRN PRN Reason: Headache Butorphanol Tartrate (Stadol) Confirm Administered Dose 1 mg .ROUTE .STK-MED ONE Stop: 09/03/20 03:37 Last Admin: 09/03/20 03:44 Dose: 1 mg Documented by: Butorphanol Tartrate (Stadol) Confirm Administered Dose 1 mg .ROUTE .STK-MED ONE Stop: 09/03/20 07:51 Carboprost Tromethamine (Hemabate Ds) 250 mcg IM ASDIRECTED PRN PRN Reason: Post Hemorrhage Famotidine (Pepcid) 20 mg IVPUSH ONETIME ONE Stop: 09/02/20 19:46 Last Admin: 09/02/20 20:27 Dose: 20 mg Documented by: Fentanyl (Sublimaze) Confirm Administered Dose 100 mcg .ROUTE .STK-MED ONE Stop: 09/02/20 19:09 Oxytocin/Sodium Chloride (Oxytocin 30 Unit/500 Ml-Ns) 30 unit in 500 mls @ 500 mls/hr IV TITRATE PRAVIN Tranexamic Acid 1,000 mg/ (Sodium Chloride) 110 mls @ 660 mls/hr IV ONETIME PRN PRN Reason: Bleeding Lactated Ringer's (Ringers, Lactated) 1,000 mls @ 150 mls/hr IV ASDIRECTED PRAVIN Last Admin: 09/02/20 20:24 Dose: 999 mls/hr Documented by: Oxytocin/Sodium Chloride (Oxytocin 30 Unit/500 Ml-Ns) 30 unit in 500 mls @ 2 mls/hr IV TITRATE PRAVIN; Protocol Last Titration: 09/02/20 21:30 Dose: 8 munits/min, 8 mls/hr Documented by: Ropivacaine (Naropin 0.2%) Confirm Administered Dose 100 mls @ as directed .ROUTE .[facility]-MED ONE Stop: 09/02/20 18:10 Ketorolac Tromethamine (Toradol) 30 mg IVPUSH ONETIME ONE Stop: 09/03/20 01:07 Last Admin: 09/03/20 01:34 Dose: 30 mg Documented by: Lidocaine HCl (Xylocaine 1%) 50 ml INJECT ONETIME PRN PRN Reason: Laceration repair Methylergonovine Maleate (Methergine) 0.2 mg IM ASDIRECTED PRN PRN Reason: Post Hemorrhage Misoprostol (Cytotec) 200 mcg PO ONETIME PRN PRN Reason: Post Hemorrhage Nalbuphine HCl (Nubain) 10 mg IVPUSH Q1H PRN PRN Reason: Pain (severe 7-10) Sodium Chloride (Saline Flush) 10 ml FLUSH ASDIRECTED PRN PRN Reason: Keep Vein Open Sodium Chloride (Saline Flush) 2.5 ml FLUSH ASDIRECTED PRN PRN Reason: Keep Vein Open Sodium Chloride (Normal Saline) 10 ml IV ASDIRECTED PRN PRN Reason: IV Use Sterile Water (Sterile Water For Irrigation) 1,000 ml IRR ASDIRECTED PRN PRN Reason: delivery Terbutaline Sulfate (Brethine) 0.25 mg SUBCUT ASDIRECTED PRN PRN Reason: Tacysystole - Interaction Support Person: - Recovery Exam Fundal Tone: Firm Fundal Level: At Umbilicus Fundal Placement: Midline Lochia Amount: Small Lochia Color: Rubra/Red Perineum Description: Intact, Minimal Bruising/Swelling Episiotomy/Laceration: None Bladder Status: Voiding - Exam General: Alert, Oriented Lungs: Normal Respiratory Effort Cardiovascular: Regular Rate, Regular Rhythm GI/Abdominal Exam: Normal Bowel Sounds, Soft Extremities: Pedal Edema (trace). No: Mc's Sign Skin: Warm, Dry, Intact Neurological: No New Focal Deficit Psy/Mental Status: Alert, Normal Affect, Normal Mood - Problem List & Annotations (1) Vaginal delivery SNOMED Code(s): 684915164 Code(s): O80 - ENCOUNTER FOR FULL-TERM UNCOMPLICATED DELIVERY Status: Acute Current Visit: No (2) Headache SNOMED Code(s): 10332342 Code(s): R51.9 - HEADACHE, UNSPECIFIED Status: Acute Current Visit: Yes - Problem List Review Problem List Initiated/Reviewed/Updated: Yes - My Orders Last 24 Hours: My Active Orders 09/04/20 08:36 Ready for Discharge [RC] PER UNIT ROUTINE - Assessment Assessment:: PPD 2 status post Headache, suspicious for spinal headache - Plan Plan:: VS are stable. Headache is lessened, but still present especially when tries to get up to ambulate. So far anesthesia has been monitoring conservatively and will reevaluate this morning. Advised patient may go home today after evaluated by anesthesia. Hopefully a blood patch will be considered once again. If not, patient is to continue ibuprofen/tylenol and if symptoms worsen over the weekend, is to call into the clinic. Discharge instructions reviewed. Follow up at [facility] 4 weeks and we will call and check on her in interval.
--- NOTE | 2020-09-04 11:51 | PCM.SN.2 ---
- Free Text/Narrative Note: Procedure note epidural blood patch for typical positional headache following recognized "wet tap" 36 hours ago. consent obtained, gloves, mask and hair covering used, time out performed, skin antisepsis with chloroprep, sterile drapes. prev epidural was at L3-4. this blood patch was placed at L4-5. lido skin wheel. midline entry-- bony obstruction x 2 redirects, R paramedian entry. MANUEL at 8 cm, no blood, csf or paresthesias. 20 ml of pts blood injected slowly without back or nuchal discomfort. Pt moved to supine position. Asked to stay supine for 1 hour. No complications.
== END 2020-09-04 15:10 | disposition home or self-care (01) | DRG 807 ==
LOC: MW.OB 13:37 → MW.OBCHECK 13:37 → MW.OB 14:05 → MW.OBCHECK 14:05 → OBSVTOIN 22:22 → MW.OB 09-03 01:57
PROVIDERS: ADMIT Obstetrics & Gynecology; ATTEND Obstetrics & Gynecology
PROC: 10E0XZZ Delivery of Products of Conception, External Approach (ICD-10-PCS; principal; 2020-09-02)
PROC: 10907ZC Drainage of Amniotic Fluid, Therapeutic from Products of Conception, Via Natural or Artificial Opening (ICD-10-PCS; 2020-09-02)
PROC: 3E033VJ Introduction of Other Hormone into Peripheral Vein, Percutaneous Approach (ICD-10-PCS; 2020-09-02)
PROC: 3E0R3BZ Introduction of Anesthetic Agent into Spinal Canal, Percutaneous Approach (ICD-10-PCS; 2020-09-02)
PROC: 00HU33Z Insertion of Infusion Device into Spinal Canal, Percutaneous Approach (ICD-10-PCS; 2020-09-02)
DX: O69.81X0 Labor and delivery complicated by cord around neck, without compression, not applicable or unspecified (principal); Z37.0 Single live birth; O74.5 Spinal and epidural anesthesia-induced headache during labor and delivery; Z3A.40 40 weeks gestation of pregnancy
CPT/HCPCS: 01967; 36415; 51702; 59025; 59409; 62273; 82803; 85014; 85018; 85027; 86592; 86850; 86900; 86901; A9270-GY; J0595; J1885; J2405; J2590; J3490; J7120

== ENCOUNTER 2021-08-07 04:14 | Emergency (ER) | payer MEDICAID ==
[2021-08-07] MEDS ORDERED: Ondansetron 4 MG/2 ML SDV IVPUSH ONE ×3 (04:37→07:38)
[2021-08-07] MEDS ORDERED: Morphine 4 MG/ML Syringe IVPUSH ONE (04:37)
[2021-08-07] MEDS ORDERED: Lactated Ringers 1,000 ML IV SCH (04:45)
[2021-08-07 05:27] LABS: BLOOD UREA NITROGEN,BUN 13 mg/dL (7.0-18.0); CHLORIDE,CL 104 mmol/L (98-107); GLUCOSE RANDOM 109 mg/dL (74-106); LIPASE 34 U/L (73-393); POTASSIUM,K 3.8 mmol/L (3.5-5.1); SODIUM,NA 142 mmol/L (136-145)
[2021-08-07] MEDS ORDERED: HYDROmorphone 1 MG/ML Syringe IVPUSH ONE ×3 (06:03→08:21)
--- NOTE | 2021-08-07 06:12 | EDM.PDOC ---
<Christophe Cleary - Last Filed: 08/07/21 07:12> ED HPI GENERAL MEDICAL PROBLEM - General Chief Complaint: Gastrointestinal Problem Stated Complaint: GALL BLADDER PAIN Time Seen by Provider: 08/07/21 04:18 - History of Present Illness INITIAL COMMENTS - FREE TEXT/NARRATIVE: CHIEF COMPLAINT(S): Abdominal pain HISTORY OF PRESENT ILLNESS: This is a 30-year-old woman with a past medical history of cholelithiasis who comes to the emergency department with a chief complaint of abdominal pain. The patient states that she is experiencing severe 10 out of 10 pain in the right upper quadrant and epigastric region. She states that she does not know any exacerbating or relieving factors and there is no radiation of this pain. She states that she has not been able to tolerate any p.o. and has had some nausea and vomiting. She denies any melena, hematochezia, hematemesis or bilious emesis. She denies any fevers or chills. She has not tried any pain medication because she cannot tolerate anything. She denies any other symptoms. REVIEW OF SYSTEMS: Constitutional: Denies fever, chills. Eyes: Denies eye pain Ears, Nose, Mouth, & Throat: Denies earache Cardiovascular: Denies chest pain Respiratory: Denies shortness of breath Gastrointestinal: Positive for abdominal pain, nausea vomiting. Denies diarrhea, medic easier, hematemesis, bilious emesis, melena Genitourinary: Denies hematuria Skin:Denies a rash MSK: Denies joint pain Neurological: Denies blurred vision Psychiatric: Denies depression PAST MEDICAL HISTORY: As per history of present illness and as reviewed below otherwise noncontributory. SURGICAL HISTORY: As per history of present illness and as reviewed below otherwise noncontributory. SOCIAL HISTORY: As per history of present illness and as reviewed below otherwise noncontributory. FAMILY HISTORY: As per history of present illness and as reviewed below otherwise noncontributory. EXAMINATION OF ORGAN SYSTEMS/BODY AREAS: Constitutional: Blood pressure is 128/83, heart rate 67, respiratory rate 18 with an oxygen saturation 97% on room air. Temperature 37.1 General: Young woman who appears to be in a moderate amount of pain. Psychiatric: Appropriate mood and affect. Eyes: No scleral icterus or conjunctival erythema ENMT: Moist mucous membranes. No pharyngeal erythema Cardiovascular: Regular, rate, and rhythm. No gallops, murmurs, or rubs. Bilateral upper extremity pulses symmetric and intact. No peripheral edema. No JVD. Respiratory: Lungs clear to auscultation bilaterally. No wheezes, rales, or rhonchi. Gastrointestinal: Soft, nondistended, tenderness palpation in the epigastric and right upper quadrant. Positive Roque sign. Negative McBurney's. No rebound or guarding. Decreased bowel sounds. Genitourinary: No suprapubic tenderness Musculoskeletal: Normal range of motion. Skin: No lesions or abrasions. Neurological: Alert, GCS 15 MEDICAL DECISION MAKING AND COURSE IN THE ED WITH INTERPRETATION/REVIEW OF DIAGNOSTIC STUDIES: This is a 30-year-old man with a known cholelithiasis who comes to the emergency department with acute right upper quadrant and epigastric pain. At this time I am concerned about the possibility of cholecystitis. We will provide the patient with 4 mg of IV morphine for pain relief, 4 mg of IV Zofran for nausea and 1 L of lactated Ringer's bolus. Will obtain CBC, CMP, lipase, hCG and a Covid swab. Will obtain a right upper quadrant ultrasound. Laboratory: CBC reveals a leukocytosis 11.55 otherwise unremarkable. CMP reveals hyperglycemia at 109 otherwise unremarkable. Lipase is normal. hCG is negative. Covid is negative. After ultrasound the patient had some increased pain therefore I provided the patient with additional dose of milligram of Dilaudid. At this time patient signed out to oncoming day team physician pending ultrasound read DISPOSITION: Patient was signed out to oncoming day team physician pending ultrasound read and final disposition CONDITION: Fair PROCEDURES: None FINAL IMPRESSION(S)/DIAGNOSES: 1. Acute right upper quadrant pain, possible acute cholecystitis Christophe Cleary M.D. Bilateral Lower Back Pain Score (Numeric/FACES): 9 - Related Data Allergies Allergy/AdvReac Type Severity Reaction Status Date / Time No Known Allergies Allergy Verified 07/24/19 19:08 Home Meds: Home Meds Albuterol [Ventolin HFA] 1 puff MISC PRN 07/13/19 [History] Fluticasone Propion/Salmeterol [Advair 250-50 Diskus] 1 puff MISC PRN 07/13/19 [History] Magnesium Hydroxide [Milk of Magnesia] 30 ml PO PRN 07/13/19 [History] Pnv No.95/Ferrous Fum/Folic AC [ Vitamins Tablet] 1 tab PO DAILY 07/13/19 [History] Past Medical History HEENT History: Reports: None Cardiovascular History: Reports: None Respiratory History: Reports: Asthma Gastrointestinal History: Reports: GERD Genitourinary History: Reports: None 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: Musculoskeletal History: Reports: None Neurological History: Reports: None Psychiatric History: Reports: None Endocrine/Metabolic History: Reports: Obesity/BMI 30+ Hematologic History: Reports: None Immunologic History: Reports: None Oncologic (Cancer) History: Reports: None Dermatologic History: Reports: None - Infectious Disease History Infectious Disease History: Reports: Chicken Pox - Past Surgical History HEENT Surgical History: Reports: None Cardiovascular Surgical History: Reports: None Respiratory Surgical History: Reports: None GI Surgical History: Reports: None Female Surgical History: Reports: None Musculoskeletal Surgical History: Reports: None Dermatological Surgical History: Reports: None - History Comment History Comment: denies etoh Social & Family History - Family History Cardiac: Reports: High Cholesterol, Hypertension, Other (See Below) Other Cardiac Family History: heart disease Respiratory: Reports: Asthma, COPD OBGYN: Reports: Psychiatric: Reports: Emotional Problems Oncologic: Reports: Colon, Lung, Skin - Tobacco Use Tobacco Use Status *Q: Never Tobacco User - Caffeine Use Caffeine Use: Reports: None - Recreational Drug Use Recreational Drug Use: No ED ROS GENERAL - Review of Systems Review Of Systems: See Below ED EXAM, GENERAL - Physical Exam Exam: See Below Departure - Departure Disposition: DC/Tfer to Acute Hospital 02 Clinical Impression: Choledocholithiasis - Discharge Information Referrals: Gideon Fleming MD [Primary Care Provider] - Forms: ED Department Discharge <Obed Patricio - Last Filed: 08/07/21 12:11> Course - Vital Signs Last Recorded V/S: Last Vital Signs Temp 98.3 F 08/07/21 10:09 Pulse 88 08/07/21 12:07 Resp 16 08/07/21 10:09 BP 118/73 08/07/21 12:07 Pulse Ox 93 L 08/07/21 12:07 - Orders/Labs/Meds Orders: Active Orders 24 hr Category Date Time Status Lactated Ringers [Ringers, Lactated] 1,000 ml Med 08/07/21 04:45 Active IV ASDIRECTED Medication Orders Lactated Ringer's (Ringers, Lactated) 1,000 mls @ 999 mls/hr IV ASDIRECTED PRAVIN Last Admin: 08/07/21 04:50 Dose: 999 mls/hr Documented by: MARK Labs: Laboratory Tests 08/07/21 08/07/21 08/07/21 Range/Units 04:45 04:45 04:45 WBC 11.55 H (4.0-11.0) K/uL RBC 4.32 (4.30-5.90) M/uL Hgb 13.6 (12.0-16.0) g/dL Hct 39.9 (36.0-46.0) % MCV 92.4 (80.0-98.0) fL MCH 31.5 (27.0-32.0) pg MCHC 34.1 (31.0-37.0) g/dL RDW Std Deviation 43.9 (28.0-62.0) fl RDW Coeff of Kateryna 13 (11.0-15.0) % Plt Count 378 (150-400) K/uL MPV 9.40 (7.40-12.00) fL Neut % (Auto) 83.6 H (48.0-80.0) % Lymph % (Auto) 12.6 L (16.0-40.0) % Avery % (Auto) 3.3 (0.0-15.0) % Eos % (Auto) 0.1 (0.0-7.0) % Baso % (Auto) 0.4 (0.0-1.5) % Neut # (Auto) 9.7 H (1.4-5.7) K/uL Lymph # (Auto) 1.5 (0.6-2.4) K/uL Avery # (Auto) 0.4 (0.0-0.8) K/uL Eos # (Auto) 0.0 (0.0-0.7) K/uL Baso # (Auto) 0.1 (0.0-0.1) K/uL Nucleated RBC % 0.0 /100WBC Nucleated RBCs # 0 K/uL Sodium 142 (136-145) mmol/L Potassium 3.8 (3.5-5.1) mmol/L Chloride 104 (98-107) mmol/L Carbon Dioxide 27.0 (21.0-32.0) mmol/L BUN 13 (7.0-18.0) mg/dL Creatinine 0.8 (0.6-1.0) mg/dL Est Cr Clr Drug Dosing 84.29 mL/min Estimated GFR (MDRD) > 60.0 ml/min Glucose 109 H (74-106) mg/dL Calcium 8.6 (8.5-10.1) mg/dL Total Bilirubin 0.8 (0.2-1.0) mg/dL AST 8 L (15-37) IU/L ALT 14 (14-63) IU/L Alkaline Phosphatase 115 (46-116) U/L Total Protein 7.8 (6.4-8.2) g/dL Albumin 4.1 (3.4-5.0) g/dL Globulin 3.7 (2.6-4.0) g/dL Albumin/Globulin Ratio 1.1 (0.9-1.6) Lipase 34 L (73-393) U/L HCG, Qual NEGATIVE (NEG) SARS-CoV-2 RNA (FAVIOLA) (NEGATIVE) 08/07/21 Range/Units 04:57 WBC (4.0-11.0) K/uL RBC (4.30-5.90) M/uL Hgb (12.0-16.0) g/dL Hct (36.0-46.0) % MCV (80.0-98.0) fL MCH (27.0-32.0) pg MCHC (31.0-37.0) g/dL RDW Std Deviation (28.0-62.0) fl RDW Coeff of Kateryna (11.0-15.0) % Plt Count (150-400) K/uL MPV (7.40-12.00) fL Neut % (Auto) (48.0-80.0) % Lymph % (Auto) (16.0-40.0) % Avery % (Auto) (0.0-15.0) % Eos % (Auto) (0.0-7.0) % Baso % (Auto) (0.0-1.5) % Neut # (Auto) (1.4-5.7) K/uL Lymph # (Auto) (0.6-2.4) K/uL Avery # (Auto) (0.0-0.8) K/uL Eos # (Auto) (0.0-0.7) K/uL Baso # (Auto) (0.0-0.1) K/uL Nucleated RBC % /100WBC Nucleated RBCs # K/uL Sodium (136-145) mmol/L Potassium (3.5-5.1) mmol/L Chloride (98-107) mmol/L Carbon Dioxide (21.0-32.0) mmol/L BUN (7.0-18.0) mg/dL Creatinine (0.6-1.0) mg/dL Est Cr Clr Drug Dosing mL/min Estimated GFR (MDRD) ml/min Glucose (74-106) mg/dL Calcium (8.5-10.1) mg/dL Total Bilirubin (0.2-1.0) mg/dL AST (15-37) IU/L ALT (14-63) IU/L Alkaline Phosphatase (46-116) U/L Total Protein (6.4-8.2) g/dL Albumin (3.4-5.0) g/dL Globulin (2.6-4.0) g/dL Albumin/Globulin Ratio (0.9-1.6) Lipase (73-393) U/L HCG, Qual (NEG) SARS-CoV-2 RNA (FAVIOLA) NEGATIVE (NEGATIVE) Meds: Medications Generic Name Dose Route Start Last Admin Trade Name Freq PRN Reason Stop Dose Admin Lactated Ringer's 1,000 mls @ 999 mls/hr 08/07/21 04:45 08/07/21 04:50 Ringers, Lactated IV 999 mls/hr ASDIRECTED PRAVIN Administration Discontinued Medications Generic Name Dose Route Start Last Admin Trade Name Freq PRN Reason Stop Dose Admin Hydromorphone HCl 1 mg 08/07/21 06:03 08/07/21 06:11 Hydromorphone 1 Mg/Ml Syringe IVPUSH 08/07/21 06:04 1 mg ONETIME ONE Administration Hydromorphone HCl 1 mg 08/07/21 07:28 08/07/21 07:35 Hydromorphone 1 Mg/Ml Syringe IVPUSH 08/07/21 07:29 1 mg ONETIME ONE Administration Hydromorphone HCl 0.5 mg 08/07/21 08:21 08/07/21 08:32 Hydromorphone 1 Mg/Ml Syringe IVPUSH 08/07/21 08:22 0.5 mg ONETIME ONE Administration Hydromorphone HCl 1 mg 08/07/21 11:14 08/07/21 11:37 Hydromorphone 2 Mg/Ml Syringe IVPUSH 08/07/21 11:15 1 mg ONETIME ONE Administration Morphine Sulfate 4 mg 08/07/21 04:37 08/07/21 04:50 Morphine 4 Mg/Ml Syringe IVPUSH 08/07/21 04:38 4 mg ONETIME ONE Administration Ondansetron HCl 4 mg 08/07/21 04:37 08/07/21 04:50 Ondansetron 4 Mg/2 Ml Sdv IVPUSH 08/07/21 04:38 4 mg ONETIME ONE Administration Ondansetron HCl 4 mg 08/07/21 06:13 08/07/21 06:17 Ondansetron 4 Mg/2 Ml Sdv IVPUSH 08/07/21 06:14 4 mg ONETIME ONE Administration Ondansetron HCl 4 mg 08/07/21 07:38 08/07/21 07:42 Ondansetron 4 Mg/2 Ml Sdv IVPUSH 08/07/21 07:39 4 mg ONETIME ONE Administration Promethazine HCl 25 mg 08/07/21 08:21 08/07/21 08:32 Promethazine 25 Mg Tab PO 08/07/21 08:22 25 mg STAT STA Administration Promethazine HCl 25 mg 08/07/21 11:54 Promethazine 25 Mg/Ml Sdv IM 08/07/21 11:55 ONETIME ONE - Re-Assessments/Exams Free Text/Narrative Re-Assessment/Exam: 08/07/21 07:[address] Valenzuela who recommends transfer of care as we do not have MRCP or ERCP capability 08/07/21 12:10 Patient accepted at [facility] by Dr. Boswell hospitalist. Dr. Sonali CASAREZ will consult Departure - Departure Time of Disposition: 12:09 Condition: Good Sepsis Event Note (ED) - Focused Exam Vital Signs: Vital Signs Temp Pulse Resp BP Pulse Ox 08/07/21 12:07 88 118/73 93 L 08/07/21 10:09 98.3 F 77 16 109/74 98 08/07/21 09:22 62 107/67 93 L 08/07/21 08:22 65 16 128/86 95 08/07/21 07:34 71 16 122/80 96 08/07/21 06:04 74 18 129/74 99 08/07/21 04:24 98.7 F 67 18 128/83 97
--- NOTE | 2021-08-07 07:35 | US ---
INDICATION: Right upper quadrant abdominal pain. COMPARISON: Ultrasound examination of the right upper quadrant of the abdomen January 06, 2021. TECHNIQUE: Ultrasound examination of the right upper quadrant of the abdomen. FINDINGS: Mild diffuse increase in echogenicity of the liver; rule out fatty infiltration. The liver is measuring 17 cm in the maximum vertical dimension. Cholelithiasis. No pericholecystic fluid collections. Negative sonographic Roque`s sign. Common bile duct is measuring 10 mm in diameter; on the previous study was measuring 4.1 mm in diameter. Gallbladder wall is measuring 8 mm in thickness. Right kidney is measuring 10 x 4.6 x 5.7 cm without any obstructive uropathy or perinephric pathology. small echogenic density identified within the common bile duct; rule out choledocholithiasis. IMPRESSION: 1. Cholelithiasis with thickening of the gallbladder wall without any pericholecystic fluid collections; sonographic Roque`s sign is negative. 2. Dilated common bile duct measuring 10 mm in diameter with a tiny echogenic density with the common duct; rule out choledocholithiasis; suggest obtaining an MRCP for further assessment. 3. Fatty infiltration of the liver. Dictated by Clovis Gunter MD @ 08/07/2021 7:34:42 AM (Electronically Signed)
[2021-08-07] MEDS ORDERED: Promethazine 25 MG Tab PO STA (08:21)
[2021-08-07] MEDS ORDERED: HYDROmorphone 2 MG/ML Syringe IVPUSH ONE ×2 (11:14→13:18)
[2021-08-07] MEDS ORDERED: Promethazine 25 MG/ML SDV IM ONE (11:54)
== END 2021-08-07 13:29 ==
LOC: MW.ED 04:14
DX: K80.50 Calculus of bile duct without cholangitis or cholecystitis without obstruction (principal); E66.9 Obesity, unspecified; Z68.22 Body mass index [BMI] 22.0-22.9, adult; Z20.822 Contact with and (suspected) exposure to COVID-19
CPT/HCPCS: 76705; 80053; 83690; 84703; 85025; 87635; 96372; 96374; 96375; 96376; 99285; A9270; J1170; J2270; J2405; J2550; J7120; U0002

== ENCOUNTER 2022-05-29 09:16 | Inpatient (IN) | payer MEDICAID ==
[2022-05-29] MEDS ORDERED: Water For Irrigation,Sterile 1,000 ML Container IRR PRN (09:47)
[2022-05-29] MEDS ORDERED: Carboprost Tromethamine 250 MCG/1 ML Amp IM PRN (09:47)
[2022-05-29] MEDS ORDERED: Ondansetron 4 MG/2 ML SDV IVPUSH PRN (09:47)
[2022-05-29] MEDS ORDERED: Sodium Chloride 0.9% 10 ML Syringe FLUSH PRN (09:47)
[2022-05-29] MEDS ORDERED: Lidocaine 1% 50 ML MDV INJECT PRN (09:47)
[2022-05-29] MEDS ORDERED: Sodium Chloride 0.9% 2.5 ML Syringe FLUSH PRN (09:47)
[2022-05-29] MEDS ORDERED: Misoprostol 200 MCG Tab PO PRN (09:47)
[2022-05-29] MEDS ORDERED: Methylergonovine 0.2 MG/1 ML Amp IM PRN (09:47)
[2022-05-29] MEDS ORDERED: Terbutaline 1 MG/ML SDV SUBCUT PRN (09:47)
[2022-05-29] MEDS ORDERED: Tranexamic Acid 1,000 MG in Sodium Chloride 0.9% 100 ML IV PRN (09:47)
[2022-05-29] MEDS ORDERED: Butorphanol 1 MG/ML SDV IVPUSH PRN (09:47)
[2022-05-29] MEDS ORDERED: Sodium Chloride 0.9% 20 ML SDV IV PRN (09:47)
[2022-05-29] MEDS ORDERED: Ampicillin 2 GM in Sodium Chloride 0.9% 100 ML IV ONE (10:00)
[2022-05-29] MEDS ORDERED: Oxytocin/0.9 % Sodium Chloride 30 UNIT/500 ML BAG IV SCH ×2 (10:00)
[2022-05-29] MEDS ORDERED: ePHEDrine 50 MG/ML SDV IVPUSH PRN ×2 (10:14)
[2022-05-29] MEDS ORDERED: Phenylephrine HCl In 0.9% NaCl 1 MG/10 ML Vial IVPUSH PRN (10:14)
[2022-05-29] MEDS ORDERED: Phenylephrine HCl In 0.9% NaCl 1 MG/10 ML Vial IVPUSH SCH (10:15)
[2022-05-29] MEDS ORDERED: Ropivacaine HCl/PF 400 MG in Premix Bag 1 BAG EPIDUR SCH (10:15)
[2022-05-29] MEDS: Lactated Ringers 1,000 ML IV SCH ×3 (10:16→23:50)
[2022-05-29] MEDS: Ampicillin 1 GM in Sodium Chloride 0.9% 50 ML IV SCH ×3 (13:59→22:25)
[2022-05-30] MEDS ORDERED: Ibuprofen 400 MG Tab PO PRN (00:54)
[2022-05-30] MEDS ORDERED: Acetaminophen 500 MG Tab PO PRN (00:54)
[2022-05-30] MEDS ORDERED: Lanolin 100% Cream 7 GM Tube TOP PRN (00:54)
[2022-05-30] MEDS ORDERED: oxyCODONE 5 MG Tab PO PRN (00:54)
[2022-05-30] MEDS ORDERED: Benzocaine/Menthol 20%-0.5% Spray 78 GM Cannister TOP PRN (00:54)
[2022-05-30] MEDS ORDERED: Docusate Sodium 100 MG Cap PO PRN (00:54)
[2022-05-30] MEDS ORDERED: Bisacodyl 10 MG Supp RECTAL PRN (00:54)
[2022-05-30] MEDS ORDERED: Witch Hazel Medicated Pads 40/Jar TOP PRN (00:54)
[2022-05-30] MEDS: Ibuprofen 800 MG Tab PO PRN ×2 (02:51→20:50)
[2022-05-30] MEDS: Acetaminophen 500 MG Tab PO PRN ×2 (02:52→10:39)
[2022-05-31] MEDS: Acetaminophen 500 MG Tab PO PRN (09:49)
== END 2022-05-31 15:22 | disposition home or self-care (01) | DRG 807 ==
LOC: MW.OB 09:16 → MW.OBCHECK 09:16 → MW.OB 09:47 → OBSVTOIN 05-30 00:32 → MW.OB 05-30 03:25
PROVIDERS: ADMIT Obstetrics & Gynecology; ATTEND Obstetrics & Gynecology
PROC: 10E0XZZ Delivery of Products of Conception, External Approach (ICD-10-PCS; principal; 2022-05-30)
PROC: 10907ZC Drainage of Amniotic Fluid, Therapeutic from Products of Conception, Via Natural or Artificial Opening (ICD-10-PCS; 2022-05-30)
DX: O99.824 Streptococcus B carrier state complicating childbirth (principal); Z37.0 Single live birth; Z3A.40 40 weeks gestation of pregnancy; O99.52 Diseases of the respiratory system complicating childbirth; J45.909 Unspecified asthma, uncomplicated; Z20.822 Contact with and (suspected) exposure to COVID-19
CPT/HCPCS: 36415; 59025; 59409; 82803; 85014; 85018; 85027; 86592; 86850; 86900; 86901; A9270-GY; J0290; J2590; J7120; U0002

== ENCOUNTER 2023-10-05 05:38 | Inpatient (IN) | payer MEDICAID ==
[2023-10-05] MEDS ORDERED: Lidocaine 1% 50 ML MDV INJECT PRN (05:41)
[2023-10-05] MEDS ORDERED: Sodium Chloride 0.9% 2.5 ML Syringe FLUSH PRN (05:41)
[2023-10-05] MEDS ORDERED: Carboprost Tromethamine 250 MCG/1 mL Vial IM PRN (05:41)
[2023-10-05] MEDS ORDERED: Sodium Chloride 0.9% 20 ML SDV IV PRN (05:41)
[2023-10-05] MEDS ORDERED: Sodium Chloride 0.9% 10 ML Syringe FLUSH PRN (05:41)
[2023-10-05] MEDS ORDERED: Butorphanol 1 MG/ML SDV IVPUSH PRN (05:41)
[2023-10-05] MEDS ORDERED: Ondansetron 4 MG/2 ML SDV IVPUSH PRN (05:41)
[2023-10-05] MEDS ORDERED: Water For Irrigation,Sterile 1,000 ML Container IRR PRN (05:41)
[2023-10-05] MEDS ORDERED: Misoprostol 200 MCG Tab PO PRN (05:41)
[2023-10-05] MEDS ORDERED: Tranexamic Acid IN NACL,ISO-OS 1,000 MG in Premix Bag 1 BAG IV PRN ×4 (05:41→16:17)
[2023-10-05] MEDS ORDERED: Methylergonovine 0.2 MG/1 ML Amp IM PRN ×2 (05:41→16:17)
[2023-10-05] MEDS ORDERED: Terbutaline 1 MG/ML SDV SUBCUT PRN (05:44)
[2023-10-05] MEDS ORDERED: Oxytocin/0.9 % Sodium Chloride 30 UNIT/500 ML BAG IV SCH ×2 (05:45)
[2023-10-05] MEDS ORDERED: Lactated Ringers 1,000 ML IV SCH (05:45)
[2023-10-05] MEDS ORDERED: Ampicillin 2 GM in Sodium Chloride 0.9% 100 ML IV ONE (06:00)
[2023-10-05 06:37] LABS: HEMATOCRIT 37.8 % (37.0-47.0); HEMOGLOBIN 13.3 g/dL (12.0-16.0); MEAN CORPUSCULAR HEMOGLOBIN 32.9 pg (28.0-32.0); MEAN CORPUSCULAR HGB CONC 35.2 g/dL (32.0-36.0); MEAN CORPUSCULAR VOLUME 93.6 fL (83.0-99.0); MEAN PLATELET VOLUME 9.8 fL (9.4-12.3); PLATELET COUNT,PLT 226 K/uL (150-400); RED BLOOD CELL COUNT 4.04 M/uL (4.10-5.30); WHITE BLOOD CELL COUNT,WBC 11.21 K/uL (3.9-11.3)
[2023-10-05] MEDS ORDERED: Ampicillin 1 GM in Sodium Chloride 0.9% 50 ML IV SCH ×2 (10:30→14:30)
[2023-10-05] MEDS ORDERED: Albuterol 8 GM Inhaler INH PRN (16:17)
[2023-10-05] MEDS ORDERED: Lanolin 100% Cream 7 GM Tube TOP PRN (16:17)
[2023-10-05] MEDS ORDERED: Benzocaine/Menthol 20%-0.5% Spray 78 GM Cannister TOP PRN (16:17)
[2023-10-05] MEDS ORDERED: Bisacodyl 10 MG Supp RECTAL PRN (16:17)
[2023-10-05] MEDS ORDERED: Docusate Sodium 100 MG Cap PO PRN (16:17)
[2023-10-05] MEDS ORDERED: Acetaminophen 500 MG Tab PO PRN (16:17)
[2023-10-05 16:55] LABS: PH,UMBILICAL ARTERIAL 7.338 (7.18-7.38); PH,UMBILICAL VENOUS 7.345 (7.25-7.45)
[2023-10-05] MEDS: Ibuprofen 800 MG Tab PO PRN (17:23)
[2023-10-05] MEDS: Witch Hazel Medicated Pads 40/Jar TOP PRN (17:25)
[2023-10-06] MEDS: Ibuprofen 800 MG Tab PO PRN ×2 (00:24→09:01)
[2023-10-06 06:39] LABS: HEMATOCRIT 35.6 % (37.0-47.0); HEMOGLOBIN 12.6 g/dL (12.0-16.0)
[2023-10-06] MEDS: Witch Hazel Medicated Pads 40/Jar TOP PRN (09:11)
== END 2023-10-06 17:40 | disposition home or self-care (01) | DRG 806 ==
LOC: MW.OBCHECK 05:38 → MW.OB 05:39 → OBSVTOIN 05:41 → MW.OB 05:41 → MW.OBCHECK 05:41 → MW.OB 20:16
PROVIDERS: ADMIT Obstetrics & Gynecology; ATTEND Obstetrics & Gynecology
PROC: 3E033VJ Introduction of Other Hormone into Peripheral Vein, Percutaneous Approach (ICD-10-PCS; principal; 2023-10-05)
PROC: 10E0XZZ Delivery of Products of Conception, External Approach (ICD-10-PCS; 2023-10-05)
PROC: 4A1HX4Z Monitoring of Products of Conception, Cardiac Electrical Activity, External Approach (ICD-10-PCS; 2023-10-05)
PROC: 10907ZC Drainage of Amniotic Fluid, Therapeutic from Products of Conception, Via Natural or Artificial Opening (ICD-10-PCS; 2023-10-05)
DX: O62.3 Precipitate labor (principal); O98.82 Other maternal infectious and parasitic diseases complicating childbirth; Z37.0 Single live birth; Z3A.39 39 weeks gestation of pregnancy; O99.824 Streptococcus B carrier state complicating childbirth
CPT/HCPCS: 36415; 59025; 59409; 82803; 85014; 85018; 85027; 86592; 86850; 86900; 86901; A9270-GY; J0290; J2590; J3490; J7120